=== PATIENT | male | born 1990 | race African-American/Black ===

== ENCOUNTER → 2022-08-06 | Outpatient (CLI) | payer OTHER | LOC: M RAD 12:31 | DX: M54.2 Cervicalgia (principal); M79.645 Pain in left finger(s); M17.0 Bilateral primary osteoarthritis of knee; M79.669 Pain in unspecified lower leg; M25.571 Pain in right ankle and joints of right foot; M79.671 Pain in right foot; M25.551 Pain in right hip ==

== ENCOUNTER → 2023-01-11 | Outpatient (CLI) | payer OTHER ==
[2023-01-11 17:31] LABS: PLATELET COUNT, AUTOMATED 193 10^3/uL (150-450)
[2023-01-11 17:46] LABS: COLLAGEN EPINEPHRINE 129 SECONDS (74-162)
[2023-01-11 17:52] LABS: INR 1.18; PROTHROMBIN TIME 14.7 SECONDS (12.5-14.5)
[2023-01-11 17:53] LABS: PARTIAL THROMBOPLASTIN TIME 28.8 SECONDS (24.8-34.2)
== END ==
LOC: M LAB 16:32
PROVIDERS: ATTEND Physician Assistant
DX: Z01.818 Encounter for other preprocedural examination (principal)